=== PATIENT | male | born 1940 | race Caucasian/White ===

== ENCOUNTER 2024-03-04 09:15 | Outpatient (CLI) | payer MEDICARE | END 2024-03-04 09:16 | disposition home or self-care (01) | LOC: RAD 09:15 | PROVIDERS: ATTEND Family Medicine | DX: I69.891 Dysphagia following other cerebrovascular disease (principal) | CPT/HCPCS: 74230 ==

== ENCOUNTER 2025-01-02 13:33 | Observation (INO) | payer MEDICARE, OTHER ==
[~2025-01-02 13:33] MED LIST: Iopamidol-370 76% 500 ML MDV (1 ML CHARGE) ONE
[2025-01-02] MEDS ORDERED: Ondansetron PF 4 MG/2 ML Vial ONE ×2 (13:52→16:34)
[2025-01-02] MEDS ORDERED: Nitroglycerin 0.4 MG TAB 1 EACH ONE ×3 (14:00→14:46)
[2025-01-02 14:05] LABS: #Basophils 0.03 10x3/uL (0.0-0.2); #Eosinophils 0.03 10x3/uL (0.0-0.7); #Monocytes 0.41 10x3/uL (0.11-0.59); #Neutrophils 4.88 10x3/uL (1.40-6.50); %Basophils 0.4 % (0.0-1.0); %Eosinophils 0.4 % (0.0-10.0); %Lymphocytes 25.4 % (21.0-51.0); %Monocytes 5.7 % (0.0-10.0); %Neutrophils 67.7 % (42.0-75.0); Hematocrit 46.8 % (42.0-52.0); Hemoglobin 15.4 g/dL (14.0-18.0); Mean Corpuscular Hemoglobin 27.8 pg (27.0-31.0); Mean Corpuscular Volume 84.6 fL (78.0-98.0); Platelet Count 174 10x3/uL (130-400); Red Blood Cell (RBC) Count 5.53 mill/uL (4.70-6.10); White Blood Cell (WBC) Count 7.21 10x3/uL (4.8-10.8)
[2025-01-02] MEDS ORDERED: Aspirin Chewable 81 MG TAB ONE (14:20)
[2025-01-02 14:32] LABS: Troponin I Less than 0.010 ng/mL (< 0.028)
[2025-01-02 14:33] LABS: Chloride 104 mmol/L (98-107); Potassium 3.7 mmol/L (3.5-5.1); Sodium 142 mmol/L (136-145)
[2025-01-02 14:34] LABS: INR-International Normal Ratio 1.0; Prothrombin Time 13.2 sec (12.0-14.7)
[2025-01-02 14:36] LABS: PTT 26.4 sec (22.9-36.1)
[2025-01-02 14:38] LABS: ALT (SGPT) 35 U/L (Less than 45); AST (SGOT) 71 U/L (11-34); Albumin 4.3 g/dL (3.1-4.5); Alkaline Phosphatase 100 U/L (40-110); Anion Gap 20 mmol/L (10-20); BUN (Urea Nitrogen) 14 mg/dL (8.4-25.7); Bilirubin, Total 1.7 mg/dL (0.3-1.2); Calc. Creatinine Clearance 0 mL/min (70-130); Calcium 9.9 mg/dL (7.8-10.44); Carbon Dioxide 22 mmol/L (23-31); Globulin 3.3 g/dL (2.4-3.5); Glucose 170 mg/dL (83-110); Lipase 68 U/L (8-78)
[2025-01-02] MEDS ORDERED: Nitroglycerin 2% Ointment 1 INCH/1 GM Packet ONE (14:53)
[2025-01-02] MEDS ORDERED: Glucagon 1 MG/ML KIT IM PRN (16:00)
[2025-01-02] MEDS ORDERED: Dextrose 50% Abboject 50 ML SYRINGE SLOW IVP PRN (16:00)
[2025-01-02] MEDS ORDERED: Acetaminophen 325 MG TAB PO PRN (16:00)
[2025-01-02] MEDS ORDERED: Ondansetron PF 4 MG/2 ML Vial IVP PRN (16:00)
[2025-01-02] MEDS ORDERED: Ketorolac Tromethamine 30 MG (1 mL) VIAL IVP PRN (16:00)
[2025-01-02 19:15] LABS: Troponin I Less than 0.010 ng/mL (< 0.028)
[2025-01-02] MEDS: Famotidine 20 MG TAB PO SCH (20:49)
[2025-01-02 20:50] LABS: Troponin I 0.031 ng/mL (< 0.028)
[2025-01-03 00:08] VITALS: BMI 23.3
[2025-01-03 06:09] LABS: Anion Gap 22 mmol/L (10-20); BUN (Urea Nitrogen) 19 mg/dL (8.4-25.7); Calc. Creatinine Clearance 68 mL/min (70-130); Calcium 9.0 mg/dL (7.8-10.44); Carbon Dioxide 16 mmol/L (23-31); Chloride 107 mmol/L (98-107); Glucose 171 mg/dL (83-110); Magnesium 2.2 mg/dL (1.6-2.6); Potassium 3.3 mmol/L (3.5-5.1); Sodium 142 mmol/L (136-145)
[2025-01-03 06:14] LABS: Troponin I 0.048 ng/mL (< 0.028)
[2025-01-03 09:04] LABS: Troponin I 0.035 ng/mL (< 0.028)
[2025-01-03 16:16] VITALS: BP 122/65; TEMP 97.3
[2025-01-03] MEDS: Aspirin Chewable 81 MG TAB PO SCH (16:18)
== END 2025-01-03 17:26 | disposition home or self-care (01) ==
LOC: ERS 13:33 → OBS 15:27 → 2NO 19:20
PROVIDERS: ADMIT Hospitalist; ATTEND Hospitalist
DX: R07.9 Chest pain, unspecified (principal); R11.2 Nausea with vomiting, unspecified; R07.81 Pleurodynia; R26.89 Other abnormalities of gait and mobility; I10 Essential (primary) hypertension; E11.9 Type 2 diabetes mellitus without complications; M54.9 Dorsalgia, unspecified; Z79.84 Long term (current) use of oral hypoglycemic drugs; Z79.85 Long-term (current) use of injectable non-insulin antidiabetic drugs
CPT/HCPCS: 71045; 71275; 78452; 80048; 80053; 82962 ×2; 83690; 83735; 83880; 84484 ×4; 85025; 85610; 85730; 93005; 93017; A9502; J2270; J2405; J2785 ×2; J7030; 36415; 36416; 96374; 96375; 96376; G0378; Q9967

== ENCOUNTER 2025-01-04 08:26 | Inpatient (IN) | payer OTHER ==
[2025-01-04] MEDS ORDERED: cefTRIAXone (ROCEPHIN) 2 GM VIAL ONE (09:08)
[2025-01-04 09:35] LABS: Hematocrit 44.1 % (42.0-52.0); Hemoglobin 14.5 g/dL (14.0-18.0); Mean Corpuscular Hemoglobin 28.0 pg (27.0-31.0); Mean Corpuscular Volume 85.3 fL (78.0-98.0); Red Blood Cell (RBC) Count 5.17 mill/uL (4.70-6.10); White Blood Cell (WBC) Count 9.83 10x3/uL (4.8-10.8)
[2025-01-04 09:47] LABS: ALT (SGPT) 293 U/L (Less than 45); AST (SGOT) 198 U/L (11-34); Albumin 2.9 g/dL (3.1-4.5); Alkaline Phosphatase 280 U/L (40-110); Anion Gap 21 mmol/L (10-20); BUN (Urea Nitrogen) 33 mg/dL (8.4-25.7); Bilirubin, Total 7.2 mg/dL (0.3-1.2); CK (CPK) 800 U/L (30-200); Calc. Creatinine Clearance 0 mL/min (70-130); Calcium 8.8 mg/dL (7.8-10.44); Carbon Dioxide 14 mmol/L (23-31); Chloride 110 mmol/L (98-107); Globulin 3.2 g/dL (2.4-3.5); Glucose 162 mg/dL (83-110); Potassium 3.0 mmol/L (3.5-5.1); Sodium 142 mmol/L (136-145)
[2025-01-04 09:58] LABS: Troponin I 0.113 ng/mL (< 0.028)
[2025-01-04 10:00] LABS: Bacteria/HPF 3+ HPF (None Seen); CAUTI Indications for Culture Alt mental st,lethar; Glucose, Urine (Dipstick) Greater than 1000 mg/dL (Negative); Leukocyte Negative Leu/uL (Negative); Protein, Urine (Dipstick) 30 mg/dL (Neg-Trace); RBC/HPF 0-3 HPF (0-3); Specific Gravity, Urine 1.032 (1.002-1.036)
[2025-01-04 10:03] LABS: Urine Culture Reflex No No
[2025-01-04 10:08] LABS: Burr Cells MARKED = >16 cells HPF (0-1); Platelet Adequacy Comment Platelets Decreased; Polychromasia SLIGHT = 2-3 cells HPF (0-2); Smudge Cells 1.0 %
[2025-01-04 10:09] LABS: Platelet Count 75 10x3/uL (130-400)
[2025-01-04] MEDS ORDERED: Ketorolac Tromethamine 30 MG (1 mL) VIAL ONE (10:35)
[2025-01-04] MEDS ORDERED: Iopamidol-370 76% 500 ML MDV (1 ML CHARGE) ONE (11:01)
[2025-01-04 11:03] LABS: INR-International Normal Ratio 1.6; PTT 33.1 sec (22.9-36.1); Prothrombin Time 19.0 sec (12.0-14.7)
[2025-01-04] MEDS ORDERED: metroNIDAZOLE 500 MG (100 mL) BAG ONE (11:18)
[2025-01-04] MEDS ORDERED: PROPOFOL 20 ML ONE (12:03)
[2025-01-04] MEDS ORDERED: Lidocaine 1% PF 5 ML VIAL ONE (12:03)
[2025-01-04] MEDS ORDERED: fentaNYL PF 100 MCG/2 ML SYRINGE ONE (12:03)
[2025-01-04] MEDS ORDERED: Rocuronium Bromide 10 MG/ML (10ML VIAL) ONE (12:03)
[2025-01-04] MEDS ORDERED: Ondansetron PF 4 MG/2 ML Vial ONE (12:03)
[2025-01-04] MEDS ORDERED: PHENYLEPHRINE-NS 100 MCG/ML 10 ML SYRINGE ONE ×2 (12:06→13:45)
[2025-01-04] MEDS ORDERED: Etomidate 40 MG (20 mL) VIAL ONE (12:12)
[2025-01-04] MEDS ORDERED: Lidocaine 2% 6 ML (Jelly) SYR ONE (12:14)
[2025-01-04 12:26] LABS: ALT (SGPT) 289 U/L (Less than 45); AST (SGOT) 227 U/L (11-34); Albumin 2.7 g/dL (3.1-4.5); Alkaline Phosphatase 208 U/L (40-110); Bilirubin, Direct 4.5 mg/dL (0.1-0.3); Bilirubin, Total 6.8 mg/dL (0.3-1.2)
[2025-01-04] MEDS ORDERED: SUCCINYLCHOLINE/SOD CL,ISO/PF 200 MG/10 ML SYRINGE FS ONE (13:10)
[2025-01-04] MEDS ORDERED: Dextrose 50% Abboject 50 ML SYRINGE SLOW IVP PRN (13:22)
[2025-01-04] MEDS ORDERED: Glucagon 1 MG/ML KIT IM PRN (13:22)
[2025-01-04] MEDS ORDERED: SUGAMMADEX SODIUM 200 MG/2 ML VIAL ONE ×3 (14:01→14:18)
[2025-01-04 15:47] VITALS: BMI 23.9
[2025-01-04] MEDS: Potassium Chloride 20 MEQ in Premix 1 BAG IVPB SCH ×2 (15:56→17:23)
[2025-01-04] MEDS: VANCOMYCIN 2 GRAM/400 ML BAG 2 GM in Premix 1 BAG IVPB SCH (16:43)
[2025-01-04] MEDS: NOREPINEPHRINE 8 MG/250 ML-D5W 250 ML IVPB SCH (16:46)
[2025-01-04] MEDS: Albumin 25% 25 GM (100 mL) BOT IVPB SCH (17:48)
[2025-01-04 17:50] LABS: ALT (SGPT) 282 U/L (Less than 45); AST (SGOT) 272 U/L (11-34); Albumin 2.4 g/dL (3.1-4.5); Alkaline Phosphatase 170 U/L (40-110); Anion Gap 20 mmol/L (10-20); BUN (Urea Nitrogen) 35 mg/dL (8.4-25.7); Bilirubin, Total 6.4 mg/dL (0.3-1.2); Calc. Creatinine Clearance 58 mL/min (70-130); Calcium 8.0 mg/dL (7.8-10.44); Carbon Dioxide 14 mmol/L (23-31); Chloride 113 mmol/L (98-107); Globulin 3.0 g/dL (2.4-3.5); Glucose 146 mg/dL (83-110); Potassium 3.5 mmol/L (3.5-5.1); Sodium 143 mmol/L (136-145)
[2025-01-04] MEDS: Sodium Bicarb 50 MEQ/50 ML Abboject 8.4% SYRINGE IVP SCH (18:16)
[2025-01-04] MEDS: Amiodarone 150 MG, Admixture Fee 1 EACH in Dextrose 5% in Water 100 ML IVPB SCH (18:34)
[2025-01-04] MEDS: Ondansetron PF 4 MG/2 ML Vial IVP PRN (19:46)
[2025-01-04] MEDS ORDERED: Vancomycin 1 GM in Sodium Chloride 0.9% 250 ML 250 ML IVPB SCH (21:00)
[2025-01-05 01:44] LABS: Troponin I 0.055 ng/mL (< 0.028)
[2025-01-05 04:10] LABS: Hematocrit 41.4 % (42.0-52.0); Hemoglobin 13.3 g/dL (14.0-18.0); Mean Corpuscular Hemoglobin 27.9 pg (27.0-31.0); Mean Corpuscular Volume 86.8 fL (78.0-98.0); Platelet Count 46 10x3/uL (130-400); Red Blood Cell (RBC) Count 4.77 mill/uL (4.70-6.10); White Blood Cell (WBC) Count 12.01 10x3/uL (4.8-10.8)
[2025-01-05 04:26] LABS: Troponin I 0.056 ng/mL (< 0.028)
[2025-01-05 04:31] LABS: Vancomycin, Random 16.9 ug/mL (See Comment)
[2025-01-05 04:51] LABS: Lipase 627 U/L (8-78)
[2025-01-05 04:59] LABS: ALT (SGPT) 306 U/L (Less than 45); AST (SGOT) 313 U/L (11-34); Albumin 3.0 g/dL (3.1-4.5); Alkaline Phosphatase 149 U/L (40-110); Anion Gap 27 mmol/L (10-20); BUN (Urea Nitrogen) 34 mg/dL (8.4-25.7); Bilirubin, Total 6.1 mg/dL (0.3-1.2); CK (CPK) 1214 U/L (30-200); Calc. Creatinine Clearance 54 mL/min (70-130); Calcium 8.2 mg/dL (7.8-10.44); Carbon Dioxide 12 mmol/L (23-31); Chloride 108 mmol/L (98-107); Globulin 2.9 g/dL (2.4-3.5); Glucose 274 mg/dL (83-110); Potassium 4.0 mmol/L (3.5-5.1); Sodium 143 mmol/L (136-145)
[2025-01-05 05:01] LABS: Platelet Adequacy Comment Platelets Decreased
[2025-01-05] MEDS: Aspirin 81 mg Enteric Coated Tablet PO SCH (08:59)
[2025-01-05] MEDS: Hydrocortisone Sod Succ/PF 100 mg/2 ml Vial IVP SCH (11:49)
[2025-01-05] MEDS ORDERED: Vancomycin 1 GM in Premix 1 BAG IVPB SCH (16:00)
[2025-01-05] MEDS: Pantoprazole 40 MG VIAL IVP SCH (16:38)
[2025-01-05] MEDS: Enoxaparin 40 MG (0.4 mL) SYRINGE SC SCH (19:47)
[2025-01-06 06:41] LABS: Hematocrit 37.7 % (42.0-52.0); Hemoglobin 12.3 g/dL (14.0-18.0); Mean Corpuscular Hemoglobin 27.9 pg (27.0-31.0); Mean Corpuscular Volume 85.5 fL (78.0-98.0); Platelet Count 30 10x3/uL (130-400); Red Blood Cell (RBC) Count 4.41 mill/uL (4.70-6.10); White Blood Cell (WBC) Count 11.45 10x3/uL (4.8-10.8)
[2025-01-06 06:54] LABS: ALT (SGPT) 285 U/L (Less than 45); AST (SGOT) 234 U/L (11-34); Albumin 2.7 g/dL (3.1-4.5); Alkaline Phosphatase 167 U/L (40-110); Anion Gap 19 mmol/L (10-20); BUN (Urea Nitrogen) 28 mg/dL (8.4-25.7); Bilirubin, Total 3.8 mg/dL (0.3-1.2); Calc. Creatinine Clearance 80 mL/min (70-130); Calcium 8.3 mg/dL (7.8-10.44); Carbon Dioxide 16 mmol/L (23-31); Chloride 112 mmol/L (98-107); Globulin 2.8 g/dL (2.4-3.5); Glucose 181 mg/dL (83-110); Magnesium 2.7 mg/dL (1.6-2.6); Potassium 4.0 mmol/L (3.5-5.1); Sodium 143 mmol/L (136-145)
[2025-01-06 07:17] LABS: Burr Cells MODERATE= 6-15 cells HPF (0-1); Platelet Adequacy Comment Platelets Decreased; Smudge Cells 2.0 %
[2025-01-06] MEDS: Pantoprazole 40 MG VIAL IVP SCH (08:17)
[2025-01-06] MEDS: Finasteride 5 MG TAB PO SCH (08:17)
[2025-01-06] MEDS ORDERED: Aspirin Chewable 81 MG TAB PO SCH (09:00)
[2025-01-06] MEDS: Sertraline 100 MG TAB PO SCH (15:50)
[2025-01-06] MEDS: Sodium Bicarbonate Tab 325 MG TAB PO SCH (19:59)
[2025-01-07 06:19] LABS: ALT (SGPT) 193 U/L (Less than 45); AST (SGOT) 77 U/L (11-34); Albumin 2.3 g/dL (3.1-4.5); Alkaline Phosphatase 201 U/L (40-110); Anion Gap 15 mmol/L (10-20); BUN (Urea Nitrogen) 30 mg/dL (8.4-25.7); Bilirubin, Total 2.0 mg/dL (0.3-1.2); Calc. Creatinine Clearance 98 mL/min (70-130); Calcium 7.6 mg/dL (7.8-10.44); Carbon Dioxide 18 mmol/L (23-31); Chloride 110 mmol/L (98-107); Globulin 2.6 g/dL (2.4-3.5); Glucose 228 mg/dL (83-110); Potassium 3.9 mmol/L (3.5-5.1); Sodium 139 mmol/L (136-145)
[2025-01-07 06:37] LABS: Hematocrit 44.2 % (42.0-52.0); Hemoglobin 14.7 g/dL (14.0-18.0); Mean Corpuscular Hemoglobin 27.6 pg (27.0-31.0); Mean Corpuscular Volume 83.1 fL (78.0-98.0); Platelet Count 38 10x3/uL (130-400); Red Blood Cell (RBC) Count 5.32 mill/uL (4.70-6.10); White Blood Cell (WBC) Count 11.27 10x3/uL (4.8-10.8)
[2025-01-07 07:08] LABS: Anisocytosis SLIGHT = 6-15 cells HPF (0-5); Burr Cells MODERATE= 6-15 cells HPF (0-1); Platelet Adequacy Comment Platelets Decreased; Poikilocytosis SLIGHT = 6-15 cells HPF (0-5); Smudge Cells 1.0 %
[2025-01-07] MEDS: Sertraline 100 MG TAB PO SCH (08:24)
[2025-01-07] MEDS: Insulin Glargine 30 UNITS/0.3 ML VIAL SC SCH (10:22)
[2025-01-07] MEDS: Melatonin 3 MG TAB PO PRN (21:01)
[2025-01-07] MEDS: Pantoprazole 40 MG VIAL IVP SCH (21:01)
[2025-01-08 04:55] LABS: Hematocrit 42.8 % (42.0-52.0); Hemoglobin 14.4 g/dL (14.0-18.0); Mean Corpuscular Hemoglobin 27.9 pg (27.0-31.0); Mean Corpuscular Volume 82.8 fL (78.0-98.0); Platelet Count 36 10x3/uL (130-400); Red Blood Cell (RBC) Count 5.17 mill/uL (4.70-6.10); White Blood Cell (WBC) Count 10.24 10x3/uL (4.8-10.8)
[2025-01-08 05:17] LABS: ALT (SGPT) 143 U/L (Less than 45); AST (SGOT) 53 U/L (11-34); Albumin 2.1 g/dL (3.1-4.5); Alkaline Phosphatase 182 U/L (40-110); Anion Gap 10 mmol/L (10-20); BUN (Urea Nitrogen) 29 mg/dL (8.4-25.7); Bilirubin, Total 1.6 mg/dL (0.3-1.2); Calc. Creatinine Clearance 105 mL/min (70-130); Calcium 7.6 mg/dL (7.8-10.44); Carbon Dioxide 21 mmol/L (23-31); Chloride 110 mmol/L (98-107); Globulin 2.3 g/dL (2.4-3.5); Glucose 232 mg/dL (83-110); Potassium 3.4 mmol/L (3.5-5.1); Sodium 138 mmol/L (136-145)
[2025-01-08 05:21] LABS: Platelet Adequacy Comment Platelets Decreased; RBC Morphology Within Normal Limits; Smudge Cells 4.9 %
[2025-01-08] MEDS: Insulin Glargine 30 UNITS/0.3 ML VIAL SC SCH (13:30)
[2025-01-08] MEDS ORDERED: Lidocaine 1% w/Epinephrine 1:100K 20 ML VIAL ONE (18:22)
[2025-01-09 04:13] LABS: Hematocrit 41.1 % (42.0-52.0); Hemoglobin 13.9 g/dL (14.0-18.0); Mean Corpuscular Hemoglobin 28.3 pg (27.0-31.0); Mean Corpuscular Volume 83.5 fL (78.0-98.0); Platelet Count 72 10x3/uL (130-400); Red Blood Cell (RBC) Count 4.92 mill/uL (4.70-6.10); White Blood Cell (WBC) Count 14.33 10x3/uL (4.8-10.8)
[2025-01-09 04:15] LABS: Anion Gap 13 mmol/L (10-20); BUN (Urea Nitrogen) 22 mg/dL (8.4-25.7); Calc. Creatinine Clearance 103 mL/min (70-130); Calcium 7.6 mg/dL (7.8-10.44); Carbon Dioxide 21 mmol/L (23-31); Chloride 112 mmol/L (98-107); Glucose 235 mg/dL (83-110); Potassium 3.5 mmol/L (3.5-5.1); Sodium 142 mmol/L (136-145)
[2025-01-09 05:00] LABS: Macrocytosis SLIGHT = 6-15 cells HPF (0-5); Ovalocytes SLIGHT = 2-5 cells HPF (0-1); Platelet Adequacy Comment Platelets Decreased; Polychromasia SLIGHT = 2-3 cells HPF (0-2); Smudge Cells 4.0 %
[2025-01-09 16:14] LABS: Heparin-Induced Ab (HITA) 0.083 OD (0.000-0.400)
[2025-01-10 08:04] LABS: Hematocrit 40.8 % (42.0-52.0); Hemoglobin 13.7 g/dL (14.0-18.0); Mean Corpuscular Hemoglobin 27.8 pg (27.0-31.0); Mean Corpuscular Volume 82.8 fL (78.0-98.0); Platelet Count 68 10x3/uL (130-400); Red Blood Cell (RBC) Count 4.93 mill/uL (4.70-6.10); White Blood Cell (WBC) Count 13.09 10x3/uL (4.8-10.8)
[2025-01-10 08:21] LABS: ALT (SGPT) 116 U/L (Less than 45); AST (SGOT) 45 U/L (11-34); Albumin 2.0 g/dL (3.1-4.5); Alkaline Phosphatase 162 U/L (40-110); Anion Gap 11 mmol/L (10-20); BUN (Urea Nitrogen) 16 mg/dL (8.4-25.7); Bilirubin, Total 1.3 mg/dL (0.3-1.2); Calc. Creatinine Clearance 152 mL/min (70-130); Calcium 7.4 mg/dL (7.8-10.44); Carbon Dioxide 23 mmol/L (23-31); Chloride 109 mmol/L (98-107); Globulin 2.5 g/dL (2.4-3.5); Glucose 181 mg/dL (83-110); Potassium 3.0 mmol/L (3.5-5.1); Sodium 140 mmol/L (136-145)
[2025-01-10 08:31] LABS: Burr Cells SLIGHT = 2-5 cells HPF (0-1); Macrocytosis SLIGHT = 6-15 cells HPF (0-5); Ovalocytes SLIGHT = 2-5 cells HPF (0-1); Platelet Adequacy Comment Platelets Decreased
[2025-01-10] MEDS: Furosemide 40 MG (4 mL) VIAL SLOW IVP SCH (14:41)
[2025-01-10] MEDS: Amiodarone 200 MG TAB PO SCH (14:42)
[2025-01-10] MEDS: Potassium Bicarbonate/Cit Ac 20 MEQ TAB PO SCH (15:27)
[2025-01-10] MEDS: Pantoprazole 40 MG DR.TAB PO SCH (20:26)
[2025-01-10] MEDS ORDERED: Enoxaparin 100 MG (1 mL) SYRINGE SC SCH (21:00)
[2025-01-11 04:55] LABS: #Basophils 0.03 10x3/uL (0.0-0.2); #Eosinophils Less than 0.03 10x3/uL (0.0-0.7); #Monocytes 0.38 10x3/uL (0.11-0.59); #Neutrophils 10.60 10x3/uL (1.40-6.50); %Basophils 0.2 % (0.0-1.0); %Eosinophils 0.2 % (0.0-10.0); %Lymphocytes 3.8 % (21.0-51.0); %Monocytes 3.2 % (0.0-10.0); %Neutrophils 88.2 % (42.0-75.0); Hematocrit 38.1 % (42.0-52.0); Hemoglobin 12.7 g/dL (14.0-18.0); Mean Corpuscular Hemoglobin 27.8 pg (27.0-31.0); Mean Corpuscular Volume 83.4 fL (78.0-98.0); Platelet Count 74 10x3/uL (130-400); Red Blood Cell (RBC) Count 4.57 mill/uL (4.70-6.10); White Blood Cell (WBC) Count 12.02 10x3/uL (4.8-10.8)
[2025-01-11 04:56] LABS: ALT (SGPT) 94 U/L (Less than 45); AST (SGOT) 34 U/L (11-34); Albumin 1.9 g/dL (3.1-4.5); Alkaline Phosphatase 157 U/L (40-110); Anion Gap 14 mmol/L (10-20); BUN (Urea Nitrogen) 13 mg/dL (8.4-25.7); Bilirubin, Total 1.2 mg/dL (0.3-1.2); Calc. Creatinine Clearance 152 mL/min (70-130); Calcium 7.4 mg/dL (7.8-10.44); Carbon Dioxide 26 mmol/L (23-31); Chloride 103 mmol/L (98-107); Globulin 2.7 g/dL (2.4-3.5); Glucose 180 mg/dL (83-110); Potassium 3.3 mmol/L (3.5-5.1); Sodium 140 mmol/L (136-145)
[2025-01-11 14:30] VITALS: BMI 26.5
[2025-01-11] MEDS: Amiodarone 200 MG TAB PO SCH (21:40)
[2025-01-12 04:24] LABS: #Basophils 0.03 10x3/uL (0.0-0.2); #Eosinophils 0.04 10x3/uL (0.0-0.7); #Monocytes 0.30 10x3/uL (0.11-0.59); #Neutrophils 9.65 10x3/uL (1.40-6.50); %Basophils 0.3 % (0.0-1.0); %Eosinophils 0.4 % (0.0-10.0); %Lymphocytes 4.3 % (21.0-51.0); %Monocytes 2.8 % (0.0-10.0); %Neutrophils 89.5 % (42.0-75.0); Hematocrit 38.1 % (42.0-52.0); Hemoglobin 12.5 g/dL (14.0-18.0); Mean Corpuscular Hemoglobin 27.7 pg (27.0-31.0); Mean Corpuscular Volume 84.5 fL (78.0-98.0); Platelet Count 77 10x3/uL (130-400); Red Blood Cell (RBC) Count 4.51 mill/uL (4.70-6.10); White Blood Cell (WBC) Count 10.77 10x3/uL (4.8-10.8)
[2025-01-12 04:42] LABS: ALT (SGPT) 75 U/L (Less than 45); AST (SGOT) 32 U/L (11-34); Albumin 1.8 g/dL (3.1-4.5); Alkaline Phosphatase 157 U/L (40-110); Anion Gap 11 mmol/L (10-20); BUN (Urea Nitrogen) 15 mg/dL (8.4-25.7); Bilirubin, Total 1.1 mg/dL (0.3-1.2); Calc. Creatinine Clearance 129 mL/min (70-130); Calcium 7.1 mg/dL (7.8-10.44); Carbon Dioxide 26 mmol/L (23-31); Chloride 101 mmol/L (98-107); Globulin 2.7 g/dL (2.4-3.5); Glucose 212 mg/dL (83-110); Potassium 3.9 mmol/L (3.5-5.1); Sodium 134 mmol/L (136-145)
[2025-01-12 16:36] VITALS: BP 138/81; TEMP 97.8
== END 2025-01-12 17:57 | DRG 871 ==
LOC: ERS 08:26 → SDC 12:52 → CCU 15:46 → IMCU/EMU 01-07 22:00 → PCU 01-08 15:59
PROVIDERS: ADMIT Surgery; ATTEND Internal Medicine
PROC: 0F943ZZ Drainage of Gallbladder, Percutaneous Approach (ICD-10-PCS; principal; 2025-01-04)
PROC: 0DJ08ZZ Inspection of Upper Intestinal Tract, Via Natural or Artificial Opening Endoscopic (ICD-10-PCS; 2025-01-04)
PROC: 0F798ZZ Dilation of Common Bile Duct, Via Natural or Artificial Opening Endoscopic (ICD-10-PCS; 2025-01-04)
PROC: 0FCC8ZZ Extirpation of Matter from Ampulla of Vater, Via Natural or Artificial Opening Endoscopic (ICD-10-PCS; 2025-01-04)
PROC: 0FC98ZZ Extirpation of Matter from Common Bile Duct, Via Natural or Artificial Opening Endoscopic (ICD-10-PCS; 2025-01-04)
PROC: BF101ZZ Fluoroscopy of Bile Ducts using Low Osmolar Contrast (ICD-10-PCS; 2025-01-04)
PROC: 02HV33Z Insertion of Infusion Device into Superior Vena Cava, Percutaneous Approach (ICD-10-PCS; 2025-01-04)
PROC: B5181ZA Fluoroscopy of Superior Vena Cava using Low Osmolar Contrast, Guidance (ICD-10-PCS; 2025-01-04)
PROC: 3E043XZ Introduction of Vasopressor into Central Vein, Percutaneous Approach (ICD-10-PCS; 2025-01-04)
PROC: 3E03329 Introduction of Other Anti-infective into Peripheral Vein, Percutaneous Approach (ICD-10-PCS; 2025-01-04)
PROC: 3E033XZ Introduction of Vasopressor into Peripheral Vein, Percutaneous Approach (ICD-10-PCS; 2025-01-04)
PROC: 30233J1 Transfusion of Nonautologous Serum Albumin into Peripheral Vein, Percutaneous Approach (ICD-10-PCS; 2025-01-04)
DX: A41.51 Sepsis due to Escherichia coli [E. coli] (principal); K22.11 Ulcer of esophagus with bleeding; K26.4 Chronic or unspecified duodenal ulcer with hemorrhage; K85.90 Acute pancreatitis without necrosis or infection, unspecified; R65.21 Severe sepsis with septic shock; K85.10 Biliary acute pancreatitis without necrosis or infection; J98.11 Atelectasis; K80.42 Calculus of bile duct with acute cholecystitis without obstruction; N39.0 Urinary tract infection, site not specified; M62.82 Rhabdomyolysis; E87.20 Acidosis, unspecified; F02.C4 Dementia in other diseases classified elsewhere, severe, with anxiety; F02.C3 Dementia in other diseases classified elsewhere, severe, with mood disturbance; E11.9 Type 2 diabetes mellitus without complications; G30.9 Alzheimer's disease, unspecified; K82.8 Other specified diseases of gallbladder; K52.9 Noninfective gastroenteritis and colitis, unspecified; D69.6 Thrombocytopenia, unspecified; R13.10 Dysphagia, unspecified; N40.0 Benign prostatic hyperplasia without lower urinary tract symptoms; E87.6 Hypokalemia; R29.6 Repeated falls; I48.91 Unspecified atrial fibrillation; Z98.890 Other specified postprocedural states; R07.9 Chest pain, unspecified; R11.2 Nausea with vomiting, unspecified; R07.81 Pleurodynia; R26.89 Other abnormalities of gait and mobility; I10 Essential (primary) hypertension; M54.9 Dorsalgia, unspecified; Z79.84 Long term (current) use of oral hypoglycemic drugs; Z79.85 Long-term (current) use of injectable non-insulin antidiabetic drugs
CPT/HCPCS: 36415; 36416; 36430; 49406; 51701; 70450; 71045; 71275; 74177; 74330; 76705; 77002; 78226; 78452; 80048; 80053; 80202; 81001; 82550; 83605; 83690; 83735; 83880; 84484; 85025; 85610; 85730; 86850; 86900; 86901; 87040; 87070; 87076; 87077; 87149; 87186; 87205; 93005; 93010; 93017; 93306; 93970; 94760; 96374; 96375; 96376; 99152; 99153; A9502; A9537; C1729; C1769; G0378; J0282; J0295; J0696; J1100; J1720; J1815; J1885; J1940; J2250; J2270; J2405; J2470; J2543; J2704; J2785; J3010; J3375; J3480; J7030; J7070; J7120; P9035; P9047; Q9967

== ENCOUNTER 2025-02-03 10:39 | Outpatient (CLI) | payer OTHER | END 2025-02-03 10:40 | disposition home or self-care (01) | LOC: RAD 10:39 | PROVIDERS: ATTEND Specialist | DX: K80.20 Calculus of gallbladder without cholecystitis without obstruction (principal) | CPT/HCPCS: 47531; Q9967 ==